=== PATIENT | female | born 1995 | race Caucasian/White ===

== ENCOUNTER 2019-02-15 07:14 | Inpatient (IN) | payer OTHER ==
[2019-02-15] MEDS ORDERED: CARBOPROST 250 MCG INJ IM ×2 (08:00→13:00)
[2019-02-15] MEDS ORDERED: METHYLERGONOVINE 0.2 MG INJ IM ×2 (08:00→13:00)
[2019-02-15] MEDS ORDERED: MISOPROSTOL 200 MCG TAB PR ×2 (08:00→13:00)
[2019-02-15] MEDS: LACTATED RINGER'S 1,000 ML IV (08:48)
[2019-02-15 09:16] LABS: ADD MAN DIFF? NO
[2019-02-15 09:31] LABS: BASOPHILS % 0.3 % (0.0-2.0); EOSINOPHILS % 0.4 % (0.0-7.0); HEMATOCRIT 38.4 % (37.0-47.0); HEMOGLOBIN 12.3 g/dl (12.0-16.0); LYMPHOCYTES # 2.5 10^3/ul (0.8-2.9); LYMPHOCYTES % 22.8 % (15.0-51.0); MEAN CORPUSCULAR HEMOGLOBIN 28.9 pg (29.0-33.0); MEAN CORPUSCULAR VOLUME 90.1 fl (82.0-101.0); MEAN PLATELET VOLUME 10.1 fl (7.4-10.4); MONOCYTE # 0.7 10^3/ul (0.3-0.9); MONOCYTES % 6.6 % (0.0-11.0); NEUTROPHIL # 7.6 10^3/ul (1.6-7.5); NEUTROPHILS % 69.5 % (39.0-77.0); PLATELET COUNT 339 10^3/UL (140-415); RED BLOOD COUNT 4.26 10^6/ul (4.20-5.40); RED CELL DISTRIBUTION WIDTH 13.2 % (11.5-14.5)
[2019-02-15 09:31] LABS: WHITE BLOOD COUNT 10.9 10^3/ul (4.8-10.8)
[2019-02-15 09:42] LABS: PROTIME 12.3 Sec (11.9-14.9)
[2019-02-15 09:43] LABS: PARTIAL THROMBOPLASTIN TIME 32.8 Sec (23.0-35.0)
[2019-02-15] MEDS: ONDANSETRON 4 MG INJ IV (10:09)
[2019-02-15] MEDS: CITRIC ACID/NA CITRATE 30 ML CUP PO (10:09)
[2019-02-15] MEDS ORDERED: OXYTOCIN 30 UNITS/LR 500 ML BAG IV (10:23)
[2019-02-15] MEDS ORDERED: morphine SULFATE/PF (10 MG/10 ML) INJ (10:23)
[2019-02-15] MEDS ORDERED: OXYTOCIN 10 UNIT INJ (10:23)
[2019-02-15] MEDS ORDERED: DEXTROSE 50% 50 ML SYRINGE (10:35)
[2019-02-15] MEDS ORDERED: PHENYLephrine (100 MCG/ML) 10ML SYG (10:35)
[2019-02-15] MEDS ORDERED: DEXAMETHASONE 4 MG/ML 1 ML INJ (10:46)
[2019-02-15] MEDS ORDERED: METOCLOPRAMIDE 10 MG INJ (10:46)
[2019-02-15] MEDS ORDERED: ONDANSETRON 4 MG INJ (10:46)
[2019-02-15] MEDS ORDERED: KETOROLAC 30 MG INJ (10:46)
[2019-02-15] MEDS ORDERED: HYDROmorphONE 0.5 MG/0.5 ML SYG IV ×2 (11:00)
[2019-02-15] MEDS ORDERED: morphine 2 MG INJ IV ×2 (11:00)
[2019-02-15] MEDS ORDERED: ONDANSETRON 4 MG INJ IV (11:00)
[2019-02-15] MEDS ORDERED: NALOXONE (0.4 MG/ML) INJ IV (11:00)
[2019-02-15] MEDS ORDERED: DIPHENHYDRAMINE 50 MG INJ IV (11:00)
[2019-02-15] MEDS ORDERED: NALBUPHINE HCL (10 MG/1 ML) INJ IV (11:00)
[2019-02-15] MEDS ORDERED: TRIMETHOBENZAMIDE 100 MG/ML VIAL IM (11:00)
[2019-02-15] MEDS ORDERED: KETOROLAC 30 MG INJ IV (11:00)
[2019-02-15] MEDS ORDERED: HYDROCODONE/APAP (5/325) TAB PO (11:00)
[2019-02-15] MEDS: OXYTOCIN 30 UNITS/LR 500 ML IV ×2 (11:46→15:52)
[2019-02-15] MEDS: CEFAZOLIN 2 GM/50 ML (PMX) 50 ML IVPB (11:51)
[2019-02-15] MEDS ORDERED: LANOLIN HPA 1 PKT TOP (13:00)
[2019-02-15] MEDS ORDERED: OXYTOCIN 30 UNITS/LR 500 ML IV (13:00)
[2019-02-15] MEDS ORDERED: METHYLERGONOVINE 0.2 MG TAB PO (13:00)
[2019-02-15] MEDS: SENNA/DOCUSATE NA (8.6MG/50MG) TAB PO (21:00)
[2019-02-15 22:02] LABS: RAPID PLASMA REAGIN NONREACTIVE (NR)
[2019-02-16] MEDS: LACTATED RINGER'S 1,000 ML IV (00:54)
[2019-02-16 09:02] LABS: ADD MAN DIFF? NO
[2019-02-16] MEDS: SENNA/DOCUSATE NA (8.6MG/50MG) TAB PO ×2 (09:03→21:23)
[2019-02-16 09:07] LABS: BASOPHILS % 0.2 % (0.0-2.0); EOSINOPHILS % 0.2 % (0.0-7.0); HEMATOCRIT 31.6 % (37.0-47.0); HEMOGLOBIN 9.9 g/dl (12.0-16.0); LYMPHOCYTES # 2.5 10^3/ul (0.8-2.9); LYMPHOCYTES % 19.2 % (15.0-51.0); MEAN CORPUSCULAR HEMOGLOBIN 28.2 pg (29.0-33.0); MEAN CORPUSCULAR HGB CONC 31.3 g/dl (32.0-37.0); MEAN PLATELET VOLUME 9.7 fl (7.4-10.4); MONOCYTE # 0.9 10^3/ul (0.3-0.9); MONOCYTES % 7.2 % (0.0-11.0); NEUTROPHIL # 9.4 10^3/ul (1.6-7.5); NEUTROPHILS % 72.6 % (39.0-77.0); PLATELET COUNT 266 10^3/UL (140-415); RED BLOOD COUNT 3.51 10^6/ul (4.20-5.40); RED CELL DISTRIBUTION WIDTH 13.3 % (11.5-14.5)
[2019-02-16 09:27] LABS: ANION GAP 3 (5-13); BLOOD UREA NITROGEN 8 mg/dl (7-20); CALCIUM 8.6 mg/dl (8.4-10.2); CARBON DIOXIDE 28 mmol/L (21-31); CHLORIDE 103 mmol/L (97-110); CREATININE 0.58 mg/dl (0.44-1.00); Estimated GFR > 60 mL/min (>60); GLUCOSE 61 mg/dl (70-220); SODIUM 134 mmol/L (135-144)
[2019-02-16] MEDS: IBUPROFEN 800 MG TAB PO ×2 (11:50→17:11)
[2019-02-17] MEDS: IBUPROFEN 800 MG TAB PO ×3 (00:07→15:25)
[2019-02-17] MEDS: HYDROCODONE/APAP (5/325) TAB PO ×4 (01:15→23:42)
[2019-02-17] MEDS: DIPHTH/TET/ACEL PERTUSS (ADULT) 0.5 ML VIAL IM* (09:00)
[2019-02-17] MEDS: SENNA/DOCUSATE NA (8.6MG/50MG) TAB PO ×2 (09:22→20:33)
[2019-02-17] MEDS: MEASLES,MUMPS,RUBELLA VACCINE INJ SC* (09:23)
[2019-02-17] MEDS: MAGNESIUM HYDROXIDE 30ML CUP PO (20:33)
[2019-02-17] MEDS: BISACODYL (EC) 5 MG TAB PO (20:33)
[2019-02-18] MEDS: HYDROCODONE/APAP (5/325) TAB PO (05:04)
[2019-02-18] MEDS: MAGNESIUM HYDROXIDE 30ML CUP PO (05:48)
[2019-02-18] MEDS: BISACODYL (EC) 5 MG TAB PO (05:48)
[2019-02-18 08:42] LABS: ADD MAN DIFF? NO
[2019-02-18 08:56] LABS: WHITE BLOOD COUNT 8.9 10^3/ul (4.8-10.8)
[2019-02-18 08:56] LABS: BASOPHILS % 0.3 % (0.0-2.0); EOSINOPHILS # 0.2 10^3/ul (0.0-0.5); EOSINOPHILS % 1.7 % (0.0-7.0); HEMATOCRIT 35.1 % (37.0-47.0); HEMOGLOBIN 10.9 g/dl (12.0-16.0); LYMPHOCYTES # 2.9 10^3/ul (0.8-2.9); LYMPHOCYTES % 32.6 % (15.0-51.0); MEAN CORPUSCULAR HEMOGLOBIN 28.5 pg (29.0-33.0); MEAN CORPUSCULAR HGB CONC 31.1 g/dl (32.0-37.0); MEAN CORPUSCULAR VOLUME 91.6 fl (82.0-101.0); MEAN PLATELET VOLUME 9.5 fl (7.4-10.4); MONOCYTE # 0.6 10^3/ul (0.3-0.9); MONOCYTES % 6.7 % (0.0-11.0); NEUTROPHIL # 5.2 10^3/ul (1.6-7.5); NEUTROPHILS % 58.3 % (39.0-77.0); PLATELET COUNT 323 10^3/UL (140-415); RED BLOOD COUNT 3.83 10^6/ul (4.20-5.40); RED CELL DISTRIBUTION WIDTH 13.3 % (11.5-14.5)
[2019-02-18] MEDS: SENNA/DOCUSATE NA (8.6MG/50MG) TAB PO (09:00)
[2019-02-18] MEDS: IBUPROFEN 800 MG TAB PO (11:39)
== END 2019-02-18 16:28 | disposition home or self-care (01) | DRG 788 ==
LOC: L-D 07:14 → PP1 15:32
PROVIDERS: Obstetrics & Gynecology
PROC: 10D00Z1 Extraction of Products of Conception, Low, Open Approach (ICD-10-PCS; principal; 2019-02-15 10:30)
DX: O34.219 Maternal care for unspecified type scar from previous cesarean delivery (principal); O99.02 Anemia complicating childbirth; Z3A.39 39 weeks gestation of pregnancy; Z37.0 Single live birth; D50.9 Iron deficiency anemia, unspecified
CPT/HCPCS: 80048; 82962; 85025; 85610; 85730; 86592; 86850; 86900; 86901; 88307; 99464